=== PATIENT | male | born 1960 | race Caucasian/White ===

== ENCOUNTER 2016-09-18 15:38 | Inpatient (IN) | payer OTHER ==
[~2016-09-18] VITALS: Ht 167.6 cm; Wt 84.2 kg
--- NOTE | ~2016-09-18 | PR ---
[place], [place] PROGRESS NOTE NAME: RAMSES MERA UNIT #: [id number] ROOM: 503 DOCTOR: KEV JONES MD BIRTHDATE: [birth year] DOS: 09/20/2016 CARDIOLOGY PROGRESS NOTE SUBJECTIVE: The patient was seen on 09/20/2016. The patient was seen in the Cardiology Department just prior to his stress test today. He is a 56-year-old man who has noticed a 2-week history of bilateral ankle swelling along with abdominal distention and 50-pound weight gain in less than a year. We were asked to see him because of the swelling along with atypical chest pain. A CTA angiogram of the chest showed no evidence for pulmonary emboli or lung nodules. A contrast echocardiogram showed normal left ventricular size, wall motion and systolic function with normal left ventricular diastolic relaxation properties. No significant valve abnormalities were seen. Overnight, he has had increased cough and dyspnea. His white count has risen from 8700-24,000. PHYSICAL EXAMINATION: VITAL SIGNS: Today, his pulse is 86 and regular. Blood pressure is 98/68. He is afebrile. NECK: Supple, with no jugular distention. CHEST: Clear. He has no wheezes or rales. HEART: Has a regular rhythm with a soft S4 gallop. EXTREMITIES: Showed trace edema. IMPRESSION: 1. Atypical chest pain. 2. Reactive airways disease with exacerbation. 3. High white blood cell count, etiology to be determined. 4. No evidence for acute myocardial infarction or pulmonary embolism based on troponin levels and imaging. PLAN: We will proceed with a pharmacologic stress test in order to determine if he has coronary artery disease as a cause for his chest pains. Further recommendations will depend upon the results of the stress test. [place], [place] PROGRESS NOTE NAME: RAMSES MERA UNIT #: [id number] ROOM: 503 DOCTOR: KEV JONES MD BIRTHDATE: [birth year] KEV JONES MD CM:PNTRANS [id number] 1302 KEV JONES MD 09/20/16 1302 interface
[~2016-09-18 15:38] MED LIST: ADVAIR 250/501 EA INH; ALBUTEROL0.09 MG/Ac INH; ATORVASTATIN CA20 M1 PO; AZITHROMYCIN250 MG PO; B-1100 MG PO; BACTRIM DS 8001 TA1 PO; BACTROBAN OINT22 GM PO; CEPACOL2 M1 PO; CIPROFLOXACIN500 MG PO; HYDROCODONE BIT1 T11 PO; LIDEX 0.05% CRE15 GM T; LOTRISONE CREAM15 GM TP; MEDROL DOSEPAK4 MG PO; MUCINEX600 MG PO; MULTIPLE VITAMI1 TAB PO; NATURE'S BLEN2000 IU PO; NEURONTIN300 MG PO; SEPTRA DS 800 M1 TAB PO; VICODIN 500 MG-1 TAB PO
[2016-09-18 15:44] VITALS: BP 160/87
[2016-09-18 16:00] VITALS: BP 144/78
[2016-09-18 16:10] LABS: BASO % 0.5 % (0.0-1.0); EOS # 0.1 10*3/uL (0.0-0.4); HEMATOCRIT 42.8 % (42.0-52.0); HEMOGLOBIN 14.8 g/dl (14.0-18.0); LYMPH # 2.3 10*3/uL (1.3-4.4); MEAN CELL VOLUME 91.3 fl (80.0-94.0); MEAN CORPUSCULAR HGB 31.6 pg (27.0-31.0); MEAN CORPUSCULAR HGB CONC 34.6 g/dl (33.0-37.0); MEAN PLATELET VOLUME 9.6 fl (9.6-12.3); MONO # 0.7 10*3/uL (0.1-1.0); MONO % 7.6 % (3.0-9.0); NEUT # 5.6 10*3/uL (2.3-7.9); NEUT % 64.4 % (47.0-73.0); PLATELET COUNT AUTOMATED 238 10*3/uL (130-400); RED BLOOD COUNT 4.69 10*6/uL (4.50-5.90); WHITE BLOOD COUNT 8.7 10*3/uL (4.8-10.8)
[2016-09-18 16:27] LABS: ALBUMIN 3.7 gm/dl (3.1-4.5); ALKALINE PHOSPHATASE 78 U/L (45-117); BILIRUBIN, TOTAL 0.3 mg/dl (0.2-1.0); BUN 11 mg/dl (7-24); C-REACTIVE PROTEIN 0.54 MG/DL (0-0.3); CARBON DIOXIDE 27 mmol/L (21-32); CHLORIDE 102 mmol/L (98-107); EST GLOM FILT AFRICAN AMERICAN > 60 ml/min; GLUCOSE 157 mg/dL (65-99); POTASSIUM 3.8 mmol/L (3.5-5.1); SGOT/AST 36 IU/L (3-35); SGPT/ALT 57 U/L (12-78); SODIUM 135 mmol/L (136-145); TOTAL PROTEIN 7.5 gm/dL (6.4-8.2)
[2016-09-18 16:31] LABS: TROPONIN I < 0.015 ng/ml (<0.045)
[2016-09-18 16:31] LABS: PROTHROMBIN TIME 10.3 SECONDS (9.0-12.4)
[2016-09-18 17:00] VITALS: BP 148/82
[2016-09-18 17:45] VITALS: BP 154/88
[2016-09-18 18:17] VITALS: BP 143/92
[2016-09-18 20:00] VITALS: BP 141/84
[2016-09-19] VITALS: BP 132/71; BP 140/82
[2016-09-19 04:00] VITALS: BP 130/70
[2016-09-19 07:36] LABS: HEMATOCRIT 46.3 % (42.0-52.0); HEMOGLOBIN 15.4 g/dl (14.0-18.0); MEAN CELL VOLUME 91.5 fl (80.0-94.0); MEAN CORPUSCULAR HGB 30.4 pg (27.0-31.0); MEAN CORPUSCULAR HGB CONC 33.3 g/dl (33.0-37.0); MEAN PLATELET VOLUME 10.3 fl (9.6-12.3); PLATELET COUNT AUTOMATED 289 10*3/uL (130-400); RED BLOOD COUNT 5.06 10*6/uL (4.50-5.90); RED CELL DISTRI WIDTH 11.9 % (0-14.5); WHITE BLOOD COUNT 18.8 10*3/uL (4.8-10.8)
[2016-09-19 08:00] VITALS: BP 139/80
[2016-09-19 08:11] LABS: ALBUMIN 3.6 gm/dl (3.1-4.5); ALKALINE PHOSPHATASE 71 U/L (45-117); BILIRUBIN, TOTAL 0.3 mg/dl (0.2-1.0); BUN 15 mg/dl (7-24); CARBON DIOXIDE 24 mmol/L (21-32); CHLORIDE 104 mmol/L (98-107); CHOLESTEROL 179 mg/dL (<200); EST GLOM FILT AFRICAN AMERICAN > 60 ml/min; FREE T4 0.88 ng/dl (0.76-1.46); GLUCOSE 179 mg/dL (65-99); HDL CHOLESTEROL 45 mg/dl (40-60); LDL CHOLESTEROL 113 mg/dL (9-159); PHOSPHOROUS 2.2 mg/dL (2.5-4.9); POTASSIUM 4.1 mmol/L (3.5-5.1); SGOT/AST 24 IU/L (3-35); SGPT/ALT 53 U/L (12-78); SODIUM 135 mmol/L (136-145); TRIGLYCERIDES 106 mg/dl (<150); VLDL CHOLESTEROL 21 mg/dL (6-40)
[2016-09-19 08:15] LABS: HEMOGLOBIN A1c 6.2 % (4.8-5.6)
[2016-09-19 08:16] LABS: LYMPHOCYTE # 0.8 10*3/uL (1.3-4.4); MONOCYTE # 0.2 10*3/uL (0.1-1.0); NEUTROPHIL # 17.9 10*3/uL (2.3-7.9); NEUTROPHILS 95 % (47-73); PLATELET SUFFICIENCY NORMAL (NORMAL); THYROID STIM HORMONE (HS) 0.382 uIU/ml (0.358-4.75); TOTAL CELLS COUNTED 100 #CELLS
[2016-09-19 08:58] LABS: FOLIC ACID 14.02 ng/mL (>5.38); VITAMIN D, 25-HYDROXY 31.4 ng/mL (30-100)
[2016-09-19 12:00] VITALS: BP 139/71
[2016-09-19 16:00] VITALS: BP 139/70
[2016-09-19 20:00] VITALS: BP 138/86; BP 139/70
[2016-09-20] VITALS: BP 109/60; BP 138/86
[2016-09-20 04:00] VITALS: BP 110/62
[2016-09-20 07:06] LABS: BASO % 0.2 % (0.0-1.0); IG # 0.3 10*3/uL (0.0-0.1); LYMPH # 2.9 10*3/uL (1.3-4.4); MEAN CELL VOLUME 92.4 fl (80.0-94.0); MEAN CORPUSCULAR HGB 30.1 pg (27.0-31.0); MEAN CORPUSCULAR HGB CONC 32.6 g/dl (33.0-37.0); MEAN PLATELET VOLUME 10.3 fl (9.6-12.3); MONO # 1.1 10*3/uL (0.1-1.0); MONO % 4.4 % (3.0-9.0); NEUT # 19.8 10*3/uL (2.3-7.9); NEUT % 82.4 % (47.0-73.0); PLATELET COUNT AUTOMATED 305 10*3/uL (130-400); RED BLOOD COUNT 4.98 10*6/uL (4.50-5.90); RED CELL DISTRI WIDTH 12.4 % (0-14.5)
[2016-09-20 07:36] LABS: BUN 19 mg/dl (7-24); CARBON DIOXIDE 28 mmol/L (21-32); CHLORIDE 103 mmol/L (98-107); EST GLOM FILT AFRICAN AMERICAN > 60 ml/min; GLUCOSE 137 mg/dL (65-99); POTASSIUM 3.8 mmol/L (3.5-5.1); SODIUM 139 mmol/L (136-145)
[2016-09-20 08:00] VITALS: BP 98/68
[2016-09-20 12:00] VITALS: BP 98/68
[2016-09-20 16:00] VITALS: BP 130/82
[2016-09-20] MEDS ORDERED: PREDNISONE10 MG PO (17:36)
== END 2016-09-20 19:52 | disposition short-term general hospital (02) | DRG 202 ==
LOC: ED 15:38 → 5E 16:52 → EDHOLD 16:52 → 5E 17:20
PROVIDERS: Internal Medicine Hospice and Palliative Medicine; Student in an Organized Health Care Education/Training Program
PROC: 4A02XM4 Measurement of Cardiac Total Activity, External Approach (ICD-10-PCS; principal; 2016-09-20)
PROC: 3E073KZ Introduction of Other Diagnostic Substance into Coronary Artery, Percutaneous Approach (ICD-10-PCS; 2016-09-20)
DX: J45.901 Unspecified asthma with (acute) exacerbation (principal); R65.10 Systemic inflammatory response syndrome (SIRS) of non-infectious origin without acute organ dysfunction; E87.1 Hypo-osmolality and hyponatremia; G62.9 Polyneuropathy, unspecified; E78.00 Pure hypercholesterolemia, unspecified; R73.9 Hyperglycemia, unspecified; M54.42 Lumbago with sciatica, left side; M54.9 Dorsalgia, unspecified; M54.41 Lumbago with sciatica, right side; G89.29 Other chronic pain; E55.9 Vitamin D deficiency, unspecified; F17.210 Nicotine dependence, cigarettes, uncomplicated; Z82.49 Family history of ischemic heart disease and other diseases of the circulatory system; Z84.89 Family history of other specified conditions; Z71.6 Tobacco abuse counseling; Z80.1 Family history of malignant neoplasm of trachea, bronchus and lung; Z88.6 Allergy status to analgesic agent; Z79.899 Other long term (current) drug therapy; R07.89 Other chest pain

== ENCOUNTER 2016-10-17 13:51 | Emergency (ER) | payer OTHER ==
[~2016-10-17] VITALS: Ht 167.6 cm; Wt 81.6 kg
[~2016-10-17 13:51] MED LIST changes: +PREDNISONE10 MG PO
[2016-10-17 14:35] LABS: BASO % 0.3 % (0.0-1.0); EOS # 0.1 10*3/uL (0.0-0.4); EOS % 1.7 % (1.0-4.0); HEMATOCRIT 42.9 % (42.0-52.0); HEMOGLOBIN 14.3 g/dl (14.0-18.0); LYMPH # 1.6 10*3/uL (1.3-4.4); LYMPH % 23.4 % (27.0-41.0); MEAN CELL VOLUME 90.3 fl (80.0-94.0); MEAN CORPUSCULAR HGB 30.1 pg (27.0-31.0); MEAN CORPUSCULAR HGB CONC 33.3 g/dl (33.0-37.0); MEAN PLATELET VOLUME 9.7 fl (9.6-12.3); MONO # 0.5 10*3/uL (0.1-1.0); MONO % 6.7 % (3.0-9.0); NEUT # 4.7 10*3/uL (2.3-7.9); NEUT % 67.3 % (47.0-73.0); PLATELET COUNT AUTOMATED 236 10*3/uL (130-400); RED BLOOD COUNT 4.75 10*6/uL (4.50-5.90); RED CELL DISTRI WIDTH 11.9 % (0-14.5)
[2016-10-17 14:57] LABS: ALBUMIN 3.4 gm/dl (3.1-4.5); BUN 9 mg/dl (7-24); CHLORIDE 99 mmol/L (98-107); CREATININE 1.19 mg/dL (0.70-1.30); LDH 229 U/L (87-241); LIPASE 103 U/L (73-393); MAGNESIUM 2.3 mg/dL (1.5-2.1); POTASSIUM 3.8 mmol/L (3.5-5.1); SGOT/AST 30 IU/L (3-35); SGPT/ALT 54 U/L (12-78); SODIUM 135 mmol/L (136-145)
[2016-10-17 14:58] LABS: ALKALINE PHOSPHATASE 75 U/L (45-117); CPK 63 U/L (39-308); TOTAL PROTEIN 7.3 gm/dL (6.4-8.2)
[2016-10-17 14:59] LABS: CKMB < 0.5 ng/ml (0.5-3.6); TROPONIN I < 0.015 ng/ml (<0.045)
[2016-10-17] MEDS ORDERED: NEURONTIN300 MG PO (17:56)
== END 2016-10-17 18:31 | disposition home or self-care (01) ==
LOC: ED 13:51
PROVIDERS: Physician Assistant
DX: R14.0 Abdominal distension (gaseous) (principal); M79.89 Other specified soft tissue disorders; R60.0 Localized edema; F17.200 Nicotine dependence, unspecified, uncomplicated; Z98.890 Other specified postprocedural states; Z88.5 Allergy status to narcotic agent

== ENCOUNTER 2016-11-07 12:05 | Emergency (ER) | payer OTHER ==
[~2016-11-07] VITALS: Ht 167.6 cm; Wt 81.6 kg
[2016-11-07 12:28] LABS: BASO % 0.5 % (0.0-1.0); EOS # 0.1 10*3/uL (0.0-0.4); EOS % 1.1 % (1.0-4.0); HEMATOCRIT 44.8 % (42.0-52.0); HEMOGLOBIN 15.2 g/dl (14.0-18.0); LYMPH # 2.2 10*3/uL (1.3-4.4); LYMPH % 27.3 % (27.0-41.0); MEAN CELL VOLUME 89.1 fl (80.0-94.0); MEAN CORPUSCULAR HGB 30.2 pg (27.0-31.0); MEAN CORPUSCULAR HGB CONC 33.9 g/dl (33.0-37.0); MEAN PLATELET VOLUME 9.5 fl (9.6-12.3); MONO # 0.6 10*3/uL (0.1-1.0); MONO % 7.2 % (3.0-9.0); NEUT # 5.1 10*3/uL (2.3-7.9); NEUT % 63.3 % (47.0-73.0); PLATELET COUNT AUTOMATED 253 10*3/uL (130-400); RED BLOOD COUNT 5.03 10*6/uL (4.50-5.90); RED CELL DISTRI WIDTH 11.9 % (0-14.5); WHITE BLOOD COUNT 8.1 10*3/uL (4.8-10.8)
[2016-11-07 12:42] LABS: ACT PARTIAL THROMBO TIME 26.4 SECONDS (20.8-31.5)
[2016-11-07 12:43] LABS: ALBUMIN 3.8 gm/dl (3.1-4.5); ALKALINE PHOSPHATASE 81 U/L (45-117); BUN 9 mg/dl (7-24); CHLORIDE 101 mmol/L (98-107); CREATININE 0.97 mg/dL (0.70-1.30); ETHYL ALCOHOL < 3.0 mg/dl (<3); LIPASE 174 U/L (73-393); SGOT/AST 44 IU/L (3-35); SGPT/ALT 75 U/L (12-78); SODIUM 136 mmol/L (136-145); TOTAL PROTEIN 7.8 gm/dL (6.4-8.2)
[2016-11-07 13:15] LABS: BILIRUBIN NEGATIVE (NEGATIVE); BLOOD NEGATIVE (NEGATIVE); CLARITY CLEAR (CLEAR); COLOR YELLOW (YELLOW); GLUCOSE NEGATIVE (NEGATIVE); KETONE NEGATIVE (NEGATIVE); LEUKO ESTERASE NEGATIVE (NEGATIVE); NITRITE NEGATIVE (NEGATIVE); SPECIFIC GRAVITY <= 1.005 (1.005-1.030); UROBILINOGEN 0.2 E.U./dl (0.2-1.0)
[2016-11-07 13:25] LABS: URINE AMPHETAMINES < 1000 (1000ng/ml); URINE BARBITURATES < 200 (200ng/ml); URINE BENZODIAZEPINES < 200 (200ng/ml); URINE CANNABINOIDS (THC) < 50 (50ng/ml); URINE COCAINE < 300 (300ng/ml); URINE METHADONE < 300 (300ng/ml); URINE OPIATES < 300 (300ng/ml)
[2016-11-07 13:32] LABS: URINE PHENCYCLIDINE < 25 (25ng/ml)
[2016-11-07 13:36] LABS: EPITHELIAL CELLS 0-2
[2016-11-07] MEDS ORDERED: MIRALAX POWDER17 G1 PO (14:49)
== END 2016-11-07 15:42 | disposition home or self-care (01) ==
LOC: ED 12:05
PROVIDERS: Nurse Practitioner Family
DX: K59.00 Constipation, unspecified (principal); R03.0 Elevated blood-pressure reading, without diagnosis of hypertension; F17.200 Nicotine dependence, unspecified, uncomplicated; Z98.890 Other specified postprocedural states; Z79.899 Other long term (current) drug therapy; Z88.5 Allergy status to narcotic agent

== ENCOUNTER → 2017-01-15 | Day surgery (SDC) | payer OTHER ==
[~2017-01-15] VITALS: Ht 170.1 cm; Wt 86.2 kg
[~2017-01-15] MED LIST changes: +GAVISCON ES TA1 EACH PO; +MIRALAX POWDER17 G1 PO; +OMEPRAZOLE MAGN20 MG PO
--- NOTE | ~2017-01-15 | O ---
[place], [place] OPERATIVE NOTE NAME: RAMSES MERA UNIT #: [id number] ROOM: DOCTOR: KLEBER BELCHER MD BIRTHDATE: [birth year] DOS: HISTORY OF PRESENT ILLNESS: A 56-year-old patient who has presented with chief complaint of epigastric distress, dyspepsia, atypical chest pain. SOCIAL HISTORY: The patient is an aggressive smoker and alcohol consumer. PAST MEDICAL HISTORY: Hypercholesterolemia, vitamin D deficiency. FAMILY HISTORY: Noncontributory. ALLERGIES: MORPHINE. PAST SURGICAL HISTORY: Hand repair. He is consuming large volume of Tums for dyspepsia. PROCEDURE: Today's procedure part of investigation is panendoscopy plus biopsy. PREMEDICATION: Versed and Diprivan. SCOPE: Olympus forward-viewing gastroscope Q10 video. OPERATIVE REPORT: After putting the patient in left lateral position and application of lubricant to the scope, the scope was introduced. Thereafter, under direct visualization, advanced through the length of esophagus without difficulty. Small hiatal hernia was noticed. Gastric pouch was entered. Gastritis seen. Antral biopsy obtained. Duodenal bulb, second and third part within normal limits. The patient extubated after GI reflection of the scope, which reveals cardia to be benign. IMPRESSION: Hiatal hernia, gastritis. PLAN AND DISCUSSION: Needs to be on PPI therapy, omeprazole 20 mg 1 every day would be started. The patient would be counseled to stop alcohol and reducing his smoking, possible to stop, antireflux measures with elevation of the head of the bed 6 inches all the time. Gaviscon as antacid of choice and follow up routinely with you in office, p.r.n. visit with us in GI Clinic. This patient intends to see Dr. Walters in future. Thank you very much indeed. [place], [place] OPERATIVE NOTE NAME: RAMSES MERA UNIT #: [id number] ROOM: DOCTOR: KLEBER BELCHER MD BIRTHDATE: [birth year] KLEBER BELCHER MD CM:OPRECORD:OPERATIVE NOTE 1018 [id number] KLEBER BELCHER MD 01/15/17 1221 interface
[2017-01-15 09:17] VITALS: BP 136/72
[2017-01-15 10:12] VITALS: BP 115/73
[2017-01-15 10:30] VITALS: BP 117/81
[2017-01-15 10:41] VITALS: BP 134/85
== END ==
LOC: SDC 01-13 11:00
DX: K29.50 Unspecified chronic gastritis without bleeding (principal); K44.9 Diaphragmatic hernia without obstruction or gangrene; F17.210 Nicotine dependence, cigarettes, uncomplicated; J45.909 Unspecified asthma, uncomplicated; K21.9 Gastro-esophageal reflux disease without esophagitis; Z79.899 Other long term (current) drug therapy; E66.9 Obesity, unspecified; Z88.8 Allergy status to other drugs, medicaments and biological substances; E78.00 Pure hypercholesterolemia, unspecified

== ENCOUNTER 2017-05-29 15:03 | Inpatient (IN) | payer OTHER ==
[~2017-05-29] VITALS: Ht 167.6 cm; Wt 83.7 kg
--- NOTE | ~2017-05-29 | O ---
[place], [place] OPERATIVE NOTE NAME: RAMSES MERA UNIT #: [id number] ROOM: 416 DOCTOR: KLEBER BELCHER MD BIRTHDATE: [birth year] DOS: 05/30/2017 GASTROENDOSCOPIC REPORT The patient has presented with atypical chest pain, subxiphoid, substernal, also he mentions radiation to the left arm. The patient has had a myocardial perfusion study done already and the study shows no acute myocardial distress. Ejection fraction 70% and details per report. At the time of admission, his H and H was 14 and 41 and remained the same. His lipase was normal. BNP was normal. Chest x-ray, no acute pathology reported. CBC was reassessed. Comprehensive metabolic panel, GFR greater than 60. Liver function test slight elevation of AST, otherwise normal. PAST MEDICAL HISTORY: Otherwise, chronic lower back pain, hypercholesterolemia and nicotine dependency. PAST SURGICAL HISTORY: Minor operation. SOCIAL HISTORY: Smoker of a pack cigarette, 2 beers daily. He says in his confession finally and he denies hard liquors. FAMILY HISTORY: Noncontributory. ALLERGIES: MORPHINE. MEDICATIONS: Reviewed. Today's procedure part of investigation is panendoscopy plus biopsy. PREMEDICATION: Versed and Diprivan. SCOPE: Olympus forward-viewing gastroscope Q10 video. REPORT: After putting the patient in left lateral position and application of lubricant to this scope, the scope was introduced. Thereafter, under direct visualization, advanced through the length of esophagus without difficulty. Esophagus, cervical, thoracic distally within normal limits. No ulceration was noticed. No evidence of acute reflux identified. Gastric pouch was entered. Moderate gastritis along with duodenitis seen. Antral biopsy obtained. GI reflexion of the scope reveals cardia to be benign. Air was suctioned out. The patient was extubated, tolerated procedure well. IMPRESSION: Gastritis and duodenitis. PLAN: Protonix 40 mg daily. Gaviscon 1 tablet before meals and advised to abstain from alcohol and smoking. However, I seriously doubt he is going to be compliant. [place], [place] OPERATIVE NOTE NAME: RAMSES MERA UNIT #: [id number] ROOM: 416 DOCTOR: KLEBER BELCHER MD BIRTHDATE: [birth year] KLEBER BELCHER MD CM:KYRA:OPERATIVE NOTE 1515 1547 KLEBER BELCHER MD 05/30/17 1546 interface
--- NOTE | ~2017-05-29 | CON ---
[place], [place] REPORT OF CONSULTATION NAME: [facility]ES [facility]A [facility] [id number] UNIT #: [id number] ROOM: 416 DOCTOR: KEV JONES MD BIRTHDATE: [birth year] DOS: 05/30/2017 REASON FOR CONSULTATION: Chest pain. HISTORY OF PRESENT ILLNESS: The patient is a 57-year-old man who has had a long history of various chest pains. I evaluated him for chest discomfort when he presented to the hospital in September 2016. He ruled out for myocardial infarction. A subsequent stress test and echocardiogram showed no evidence for structural or ischemic heart disease. He states that since then he has continued to have intermittent chest pain, but in the last week or so his pains have become much worse. They come at odd times and are not specifically related to exertion. He has had severe pains wake him from sleep. The pains do radiate into his left arm and are associated with diaphoresis and dyspnea. He became concerned that his pains have gotten a lot worse and therefore came to the emergency room. In the emergency room, he had no acute EKG changes. There was a minimal elevation in his troponin; however, and we were asked to evaluate him further. PAST MEDICAL HISTORY: Includes 1. Long-term recurrent chest pain. 2. Hyperglycemia. 3. Reactive airways disease. 4. History of tachycardia. 5. Chronic tobacco abuse. 6. History of daily alcohol consumption. 7. History of chronic back pain. 8. Chronic obstructive pulmonary disease. MEDICATIONS PRIOR TO ADMISSION: Aspirin 325 mg daily, vitamin D 2000 units daily, furosemide 20 mg b.i.d., losartan with hydrochlorothiazide 50/12.5 one daily and potassium chloride 20 mEq daily. ALLERGIES: The patient lists allergies to MORPHINE. REVIEW OF SYSTEMS: The patient denies diplopia or loss of vision. He denies focal weakness, but he is generally weak. He denies fevers, chills or sweats. He does note that his weight is gradually increasing. He does have chronic back pain. He has dyspnea with minor exertion. He has a chronic cough. He denies nausea or vomiting unless he is having chest discomfort. He denies hemoptysis or hematemesis. He denies blood in his stools or urine. He denies any change in his bowel or bladder habits. He denies any skin rashes. He does admit to some peripheral edema. The remainder of the review of systems is negative except as noted above. SOCIAL HISTORY: The patient does smoke and drink alcohol (beer) daily. He denies illicit drug use. FAMILY HISTORY: His father at age 59 from small cell lung cancer. He did have a history of heart attack at age 51. He had a sister who had a heart attack at age 53. Another brother at age 46 due to a myocardial [place], [place] REPORT OF CONSULTATION NAME: RAMSES MERA UNIT #: [id number] ROOM: [facility] DOCTOR: KEV JONES MD BIRTHDATE: [birth year] infarction. PHYSICAL EXAMINATION: GENERAL: The patient is a well-nourished white male, looks older than his stated age. VITAL SIGNS: Pulse is 84 and regular, blood pressure is 124/85. He is afebrile. HEENT: Normocephalic, atraumatic. Extraocular muscles are intact. Sclerae are clear. Pupils are equal, round and react to light. The oral mucosa is moist. Tongue is midline. NECK: Supple. He has no jugular distention. Carotids are full. He has no bruits. He has no neck or supraclavicular masses and no thyromegaly. LUNGS: Respirations are unlabored. His chest is clear with decreased breath sounds at the bases, but no wheezes or rales. He has no presacral edema or chest wall tenderness. CARDIOVASCULAR: His heart has a regular rhythm. He has a fourth heart sound, but no third heart sound. The PMI is not displaced. He has no precordial heave, lift or thrill and no obvious murmurs. ABDOMEN: Soft and normally active. He does have some mild right upper quadrant tenderness, but this does not reproduce his chest pain. Palpation of his chest and abdomen do not reproduce his chest pain in anyway. EXTREMITIES: Showed no edema. Peripheral pulses are easily palpated in the feet. LABORATORY DATA: The patient's electrocardiogram shows sinus rhythm with nonspecific T-wave abnormalities in the inferior and lateral leads. No acute ST changes were seen. IMPRESSIONS: 1. Atypical chest pain. The patient's evaluations in the past have included a stress test and echocardiogram within the last year. They were both unremarkable. It is felt to be most likely that his symptoms are due to gastritis, hiatal hernia, etc. 2. Multiple risk factors including cigarette abuse, hyperlipidemia, family history, etc. PLAN: We will proceed with a pharmacologic stress test. Further recommendations will depend upon the results of the stress test. I thank the hospitalist physicians for asking our advice regarding the patient's care. [place], [place] REPORT OF CONSULTATION NAME: RAMSES MERA UNIT #: [id number] ROOM: 416 DOCTOR: KEV JONES MD BIRTHDATE: [birth year] KEV JONES MD CM:CONSTR:REPORT OF CONSULTATION 1016 05/30/17 1038 interface
[2017-05-29 15:07] VITALS: BP 146/93
[2017-05-29 15:32] LABS: BASO % 0.4 % (0.0-1.0); EOS # 0.1 10*3/uL (0.0-0.4); EOS % 0.9 % (1.0-4.0); HEMATOCRIT 41.9 % (42.0-52.0); HEMOGLOBIN 14.3 g/dl (14.0-18.0); LYMPH % 25.1 % (27.0-41.0); MEAN CELL VOLUME 86.6 fl (80.0-94.0); MEAN CORPUSCULAR HGB 29.5 pg (27.0-31.0); MEAN CORPUSCULAR HGB CONC 34.1 g/dl (33.0-37.0); MEAN PLATELET VOLUME 9.7 fl (9.6-12.3); MONO # 0.5 10*3/uL (0.1-1.0); MONO % 6.5 % (3.0-9.0); NEUT # 5.2 10*3/uL (2.3-7.9); NEUT % 66.5 % (47.0-73.0); PLATELET COUNT AUTOMATED 268 10*3/uL (130-400); RED BLOOD COUNT 4.84 10*6/uL (4.50-5.90); RED CELL DISTRI WIDTH 12.1 % (0-14.5); WHITE BLOOD COUNT 7.9 10*3/uL (4.8-10.8)
[2017-05-29 15:41] LABS: ACT PARTIAL THROMBO TIME 24.4 SECONDS (20.8-31.5); INTERNATIONAL NORM RATIO 0.9 (2.0-3.5)
[2017-05-29 15:51] LABS: ALBUMIN 3.7 gm/dl (3.1-4.5); ALKALINE PHOSPHATASE 71 U/L (45-117); BUN 12 mg/dl (7-24); CHLORIDE 92 mmol/L (98-107); CREATININE 1.07 mg/dL (0.70-1.30); POTASSIUM 3.8 mmol/L (3.5-5.1); SGOT/AST 51 IU/L (3-35); SGPT/ALT 77 U/L (12-78); SODIUM 131 mmol/L (136-145); TOTAL PROTEIN 7.9 gm/dL (6.4-8.2)
[2017-05-29 15:52] LABS: TROPONIN I 0.027 ng/ml (<0.045)
[2017-05-29 15:53] VITALS: BP 139/72
[2017-05-29] MEDS ORDERED: FUROSEMIDE20 M1 PO (16:00)
[2017-05-29] MEDS ORDERED: LOSARTAN-HCTZ1 EACH PO (16:01)
[2017-05-29] MEDS ORDERED: ASPIRIN325 M2 PO (16:02)
[2017-05-29 16:46] VITALS: BP 107/61
[2017-05-29 17:06] VITALS: BP 104/75
[2017-05-29] MEDS ORDERED: POTASSIUM CHLO20 MEQ PO (17:25)
[2017-05-29 20:00] VITALS: BP 126/86
[2017-05-30] VITALS (8 sets, daily range): BP systolic 90–136; BP diastolic 35–85
[2017-05-30 06:06] LABS: BASO % 0.4 % (0.0-1.0); EOS # 0.2 10*3/uL (0.0-0.4); HEMATOCRIT 41.4 % (42.0-52.0); HEMOGLOBIN 13.8 g/dl (14.0-18.0); LYMPH # 2.6 10*3/uL (1.3-4.4); LYMPH % 30.7 % (27.0-41.0); MEAN CELL VOLUME 88.7 fl (80.0-94.0); MEAN CORPUSCULAR HGB 29.6 pg (27.0-31.0); MEAN CORPUSCULAR HGB CONC 33.3 g/dl (33.0-37.0); MEAN PLATELET VOLUME 9.7 fl (9.6-12.3); MONO # 0.8 10*3/uL (0.1-1.0); MONO % 8.9 % (3.0-9.0); NEUT # 4.8 10*3/uL (2.3-7.9); NEUT % 57.1 % (47.0-73.0); PLATELET COUNT AUTOMATED 271 10*3/uL (130-400); RED BLOOD COUNT 4.67 10*6/uL (4.50-5.90); RED CELL DISTRI WIDTH 12.4 % (0-14.5); WHITE BLOOD COUNT 8.5 10*3/uL (4.8-10.8)
[2017-05-30 06:11] LABS: ALBUMIN 3.4 gm/dl (3.1-4.5); BUN 14 mg/dl (7-24); CHLORIDE 98 mmol/L (98-107); POTASSIUM 4.1 mmol/L (3.5-5.1); SODIUM 134 mmol/L (136-145)
[2017-05-30 06:14] LABS: ALKALINE PHOSPHATASE 59 U/L (45-117); CREATININE 0.99 mg/dL (0.70-1.30); PHOSPHOROUS 2.7 mg/dL (2.5-4.9); SGOT/AST 38 IU/L (3-35); SGPT/ALT 66 U/L (12-78)
[2017-05-30] MEDS ORDERED: NITROSTAT0.3 M1 SL (17:24)
[2017-05-30] MEDS ORDERED: METFORMIN500 MG PO (17:24)
[2017-05-30] MEDS ORDERED: COREG6.25 MG PO (17:26)
[2017-05-30] MEDS ORDERED: LIPITOR80 MG PO (17:28)
== END 2017-05-30 17:43 | disposition home or self-care (01) | DRG 205 ==
LOC: ED 15:03 → EDHOLD 16:18 → 4E 16:18
PROVIDERS: Emergency Medicine; Student in an Organized Health Care Education/Training Program
PROC: 0DB78ZX Excision of Stomach, Pylorus, Via Natural or Artificial Opening Endoscopic, Diagnostic (ICD-10-PCS; principal; 2017-05-30)
PROC: 4A02XM4 Measurement of Cardiac Total Activity, External Approach (ICD-10-PCS; 2017-05-30)
PROC: 3E073KZ Introduction of Other Diagnostic Substance into Coronary Artery, Percutaneous Approach (ICD-10-PCS; 2017-05-30)
DX: M94.0 Chondrocostal junction syndrome [Tietze] (principal); I21.9 Acute myocardial infarction, unspecified; E11.42 Type 2 diabetes mellitus with diabetic polyneuropathy; R13.10 Dysphagia, unspecified; E11.65 Type 2 diabetes mellitus with hyperglycemia; E87.1 Hypo-osmolality and hyponatremia; K29.70 Gastritis, unspecified, without bleeding; R07.89 Other chest pain; M54.5 Low back pain; E87.8 Other disorders of electrolyte and fluid balance, not elsewhere classified; D72.810 Lymphocytopenia; R74.0 Nonspecific elevation of levels of transaminase and lactic acid dehydrogenase [LDH]; E55.9 Vitamin D deficiency, unspecified; F17.200 Nicotine dependence, unspecified, uncomplicated; D64.9 Anemia, unspecified; E78.5 Hyperlipidemia, unspecified; K29.80 Duodenitis without bleeding; K44.9 Diaphragmatic hernia without obstruction or gangrene; E78.00 Pure hypercholesterolemia, unspecified; G89.29 Other chronic pain; J44.9 Chronic obstructive pulmonary disease, unspecified; I10 Essential (primary) hypertension; Z82.49 Family history of ischemic heart disease and other diseases of the circulatory system; Z80.1 Family history of malignant neoplasm of trachea, bronchus and lung; Z88.8 Allergy status to other drugs, medicaments and biological substances; Z79.82 Long term (current) use of aspirin; Z79.899 Other long term (current) drug therapy; Z71.6 Tobacco abuse counseling; Z72.89 Other problems related to lifestyle

== ENCOUNTER 2017-06-07 12:32 | Inpatient (IN) | payer OTHER ==
[~2017-06-07] VITALS: Ht 167.6 cm; Wt 80.3 kg
[~2017-06-07 12:32] MED LIST changes: +ASPIRIN325 M2 PO; +COREG6.25 MG PO; +FUROSEMIDE20 M1 PO; +LIPITOR80 MG PO; +LOSARTAN-HCTZ1 EACH PO; +METFORMIN500 MG PO; +NITROSTAT0.3 M1 SL; +POTASSIUM CHLO20 MEQ PO
[2017-06-07 12:49] VITALS: BP 120/68
[2017-06-07 12:59] LABS: BASO % 0.3 % (0.0-1.0); EOS # 0.1 10*3/uL (0.0-0.4); EOS % 1.1 % (1.0-4.0); HEMATOCRIT 42.3 % (42.0-52.0); HEMOGLOBIN 14.7 g/dl (14.0-18.0); LYMPH # 1.9 10*3/uL (1.3-4.4); MEAN CELL VOLUME 86.9 fl (80.0-94.0); MEAN CORPUSCULAR HGB 30.2 pg (27.0-31.0); MEAN CORPUSCULAR HGB CONC 34.8 g/dl (33.0-37.0); MEAN PLATELET VOLUME 9.3 fl (9.6-12.3); MONO # 0.6 10*3/uL (0.1-1.0); MONO % 5.9 % (3.0-9.0); NEUT # 7.7 10*3/uL (2.3-7.9); NEUT % 74.2 % (47.0-73.0); PLATELET COUNT AUTOMATED 280 10*3/uL (130-400); RED BLOOD COUNT 4.87 10*6/uL (4.50-5.90); RED CELL DISTRI WIDTH 11.9 % (0-14.5); WHITE BLOOD COUNT 10.4 10*3/uL (4.8-10.8)
[2017-06-07 13:10] LABS: ACT PARTIAL THROMBO TIME 23.9 SECONDS (20.8-31.5)
[2017-06-07 13:14] LABS: ALBUMIN 3.9 gm/dl (3.1-4.5); ALKALINE PHOSPHATASE 74 U/L (45-117); BUN 13 mg/dl (7-24); CHLORIDE 97 mmol/L (98-107); POTASSIUM 3.9 mmol/L (3.5-5.1); SGOT/AST 33 IU/L (3-35); SGPT/ALT 62 U/L (12-78); SODIUM 135 mmol/L (136-145); TOTAL PROTEIN 7.8 gm/dL (6.4-8.2)
[2017-06-07 13:17] LABS: TROPONIN I < 0.015 ng/ml (<0.045)
[2017-06-07 14:16] VITALS: BP 108/72
[2017-06-07 15:09] VITALS: BP 108/74
[2017-06-07 15:42] VITALS: BP 106/72
[2017-06-07 20:00] VITALS: BP 104/51
[2017-06-08] VITALS: BP 105/63
[2017-06-08 06:33] LABS: BASO % 0.4 % (0.0-1.0); EOS # 0.1 10*3/uL (0.0-0.4); EOS % 1.3 % (1.0-4.0); HEMATOCRIT 40.6 % (42.0-52.0); HEMOGLOBIN 13.5 g/dl (14.0-18.0); LYMPH # 2.4 10*3/uL (1.3-4.4); LYMPH % 22.6 % (27.0-41.0); MEAN CELL VOLUME 89.4 fl (80.0-94.0); MEAN CORPUSCULAR HGB 29.7 pg (27.0-31.0); MEAN CORPUSCULAR HGB CONC 33.3 g/dl (33.0-37.0); MEAN PLATELET VOLUME 10.2 fl (9.6-12.3); MONO # 0.8 10*3/uL (0.1-1.0); MONO % 7.2 % (3.0-9.0); NEUT % 67.7 % (47.0-73.0); PLATELET COUNT AUTOMATED 240 10*3/uL (130-400); RED BLOOD COUNT 4.54 10*6/uL (4.50-5.90); RED CELL DISTRI WIDTH 11.9 % (0-14.5); WHITE BLOOD COUNT 10.4 10*3/uL (4.8-10.8)
[2017-06-08 07:00] LABS: ALBUMIN 3.5 gm/dl (3.1-4.5); ALKALINE PHOSPHATASE 70 U/L (45-117); BUN 14 mg/dl (7-24); CHLORIDE 98 mmol/L (98-107); CHOLESTEROL 88 mg/dL (<200); CREATININE 1.07 mg/dL (0.70-1.30); FREE T4 1.13 ng/dl (0.76-1.46); HDL CHOLESTEROL 30 mg/dl (40-60); LDL CHOLESTEROL 34 mg/dL (9-159); PHOSPHOROUS 3.7 mg/dL (2.5-4.9); POTASSIUM 3.7 mmol/L (3.5-5.1); SGOT/AST 33 IU/L (3-35); SGPT/ALT 55 U/L (12-78); SODIUM 138 mmol/L (136-145); TOTAL PROTEIN 7.2 gm/dL (6.4-8.2); TRIGLYCERIDES 118 mg/dl (<150); VLDL CHOLESTEROL 24 mg/dL (6-40)
[2017-06-08 08:00] VITALS: BP 111/66
[2017-06-08 09:45] LABS: VITAMIN D, 25-HYDROXY 44.6 ng/mL (30-100)
[2017-06-08 12:00] VITALS: BP 125/89
[2017-06-08 16:00] VITALS: BP 125/73
[2017-06-08 20:00] VITALS: BP 131/86
[2017-06-09] VITALS: BP 132/82
== END 2017-06-09 07:15 | disposition other institution (70) | DRG 303 ==
LOC: ED 12:32 → 5E 14:43 → EDHOLD 14:43 → 5E 15:07
PROVIDERS: Family Medicine; Nurse Practitioner Family
DX: I25.10 Atherosclerotic heart disease of native coronary artery without angina pectoris (principal); E11.42 Type 2 diabetes mellitus with diabetic polyneuropathy; E11.51 Type 2 diabetes mellitus with diabetic peripheral angiopathy without gangrene; E87.1 Hypo-osmolality and hyponatremia; E87.8 Other disorders of electrolyte and fluid balance, not elsewhere classified; K29.00 Acute gastritis without bleeding; E83.41 Hypermagnesemia; G89.29 Other chronic pain; M54.9 Dorsalgia, unspecified; E78.5 Hyperlipidemia, unspecified; J44.9 Chronic obstructive pulmonary disease, unspecified; K21.9 Gastro-esophageal reflux disease without esophagitis; D72.810 Lymphocytopenia; F17.200 Nicotine dependence, unspecified, uncomplicated; E78.00 Pure hypercholesterolemia, unspecified; I10 Essential (primary) hypertension; E11.65 Type 2 diabetes mellitus with hyperglycemia; Z82.49 Family history of ischemic heart disease and other diseases of the circulatory system; Z83.3 Family history of diabetes mellitus; Z80.1 Family history of malignant neoplasm of trachea, bronchus and lung; Z79.82 Long term (current) use of aspirin; Z88.5 Allergy status to narcotic agent; Z79.84 Long term (current) use of oral hypoglycemic drugs; Z79.4 Long term (current) use of insulin; Z79.899 Other long term (current) drug therapy; Z71.6 Tobacco abuse counseling; Z72.89 Other problems related to lifestyle

== ENCOUNTER → 2017-07-23 | Outpatient (CLI) | payer OTHER | END | disposition home or self-care (01) | LOC: RAD 07-17 11:00 | DX: K21.9 Gastro-esophageal reflux disease without esophagitis (principal); E11.9 Type 2 diabetes mellitus without complications ==

== ENCOUNTER → 2019-12-28 | Outpatient (CLI) | payer OTHER | END | disposition home or self-care (01) | LOC: CARD 10:19 | PROVIDERS: ATTEND Physician Assistant | DX: I49.3 Ventricular premature depolarization (principal); I49.1 Atrial premature depolarization; I10 Essential (primary) hypertension; E78.00 Pure hypercholesterolemia, unspecified; I65.23 Occlusion and stenosis of bilateral carotid arteries; I20.1 Angina pectoris with documented spasm; F17.200 Nicotine dependence, unspecified, uncomplicated ==

== ENCOUNTER → 2020-12-25 | Outpatient (CLI) | payer OTHER | END | disposition home or self-care (01) | LOC: NM 08:00 | PROVIDERS: ATTEND Surgery | DX: K21.9 Gastro-esophageal reflux disease without esophagitis (principal) ==

== ENCOUNTER → 2021-02-26 | Day surgery (SDC) | payer OTHER ==
[~2021-02-26] VITALS: Ht 167.6 cm; Wt 77.1 kg
[~2021-02-26] MED LIST changes: +CARAFATE1 G1 PO; +PROTONIX40 MG PO
[2021-02-26 07:47] VITALS: BP 128/81
[2021-02-26 08:30] VITALS: BP 117/73
[2021-02-26 08:45] VITALS: BP 109/76
[2021-02-26 09:00] VITALS: BP 122/64
== END | disposition home or self-care (01) ==
LOC: SDC 02-15 12:45
PROVIDERS: ATTEND Surgery
DX: K21.9 Gastro-esophageal reflux disease without esophagitis (principal); K29.80 Duodenitis without bleeding; K29.50 Unspecified chronic gastritis without bleeding; I25.10 Atherosclerotic heart disease of native coronary artery without angina pectoris; I10 Essential (primary) hypertension; J44.9 Chronic obstructive pulmonary disease, unspecified; F17.210 Nicotine dependence, cigarettes, uncomplicated; E78.00 Pure hypercholesterolemia, unspecified; Z88.5 Allergy status to narcotic agent; Z20.822 Contact with and (suspected) exposure to COVID-19; Z79.899 Other long term (current) drug therapy

== ENCOUNTER → 2024-05-13 | Outpatient (CLI) | payer OTHER | END | disposition home or self-care (01) | LOC: US 08:00 | PROVIDERS: ATTEND Urology | DX: K76.0 Fatty (change of) liver, not elsewhere classified (principal); N28.89 Other specified disorders of kidney and ureter; N43.3 Hydrocele, unspecified ==

== ENCOUNTER → 2024-09-17 | Outpatient (CLI) | payer OTHER | LOC: US 08-19 08:30 | PROVIDERS: ATTEND Physician Assistant | DX: K76.0 Fatty (change of) liver, not elsewhere classified (principal); K86.89 Other specified diseases of pancreas; E11.8 Type 2 diabetes mellitus with unspecified complications ==

== ENCOUNTER → 2024-10-25 | Outpatient (CLI) | payer OTHER | END | disposition home or self-care (01) | LOC: US 10-13 13:00 | PROVIDERS: ATTEND Urology | DX: N43.2 Other hydrocele (principal); N50.811 Right testicular pain; N45.1 Epididymitis ==

== ENCOUNTER 2024-11-28 17:19 | Emergency (ER) | payer OTHER ==
[~2024-11-28] VITALS: Ht 167.6 cm; Wt 72.6 kg
[2024-11-28] MEDS ORDERED: SODIUM CHLORIDE 0.9% 1,000 ML IV ONE (18:05)
[2024-11-28 18:28] LABS: BASO # 0.1 10*3/uL (0.0-0.1); BASO % 0.6 % (0.0-1.0); EOS # 0.3 10*3/uL (0.0-0.4); EOS % 4.0 % (1.0-4.0); MEAN CELL VOLUME 91.1 fl (80.0-94.0); MEAN CORPUSCULAR HGB 29.7 pg (27.0-31.0); MEAN PLATELET VOLUME 9.6 fl (9.6-12.3); MONO # 0.5 10*3/uL (0.1-1.0); MONO % 6.0 % (3.0-9.0); NEUT # 5.7 10*3/uL (2.3-7.9); NEUT % 67.1 % (47.0-73.0); NUCLEATED RED BLOOD CELL 0.0 % (0.0-0.0); NUCLEATED RED BLOOD CELL 0.0 10*3/uL (0.0-0.0); PLATELET COUNT AUTOMATED 293 10*3/uL (130-400); RED CELL DISTRI WIDTH 12.1 % (0-14.5)
[2024-11-28 18:53] LABS: BUN 12 mg/dl (9-23); ETHYL ALCOHOL < 3.0 mg/dl (<3)
[2024-11-28 19:47] LABS: BILIRUBIN Negative (Negative); BLOOD Negative (Negative); CLARITY Clear (Clear); COLOR Yellow (Yellow); KETONE Negative (Negative); LEUKO ESTERASE Trace (Negative); NITRITE Negative (Negative); PH 5.5 (4.5-8.0); SPECIFIC GRAVITY 1.015 (1.001-1.030); UROBILINOGEN 0.2 E.U./dl (0.0-1.0)
[2024-11-28 19:56] LABS: RBC 0-2 rbc/hpf (0-2)
[2024-11-28 19:57] LABS: BACTERIA 1+; MUCOUS 1+
[2024-11-28] MEDS ORDERED: MELOXICAM15 MG PO (20:26)
[2024-11-28] MEDS ORDERED: VIBRAMYCIN100 MG PO (20:26)
== END 2024-11-28 20:29 | disposition home or self-care (01) ==
LOC: ED 17:19
PROVIDERS: Emergency Medicine
DX: N49.1 Inflammatory disorders of spermatic cord, tunica vaginalis and vas deferens (principal); J45.909 Unspecified asthma, uncomplicated; I10 Essential (primary) hypertension; F17.200 Nicotine dependence, unspecified, uncomplicated; Z79.899 Other long term (current) drug therapy; Z88.5 Allergy status to narcotic agent; Z98.890 Other specified postprocedural states

== ENCOUNTER → 2024-12-06 | Outpatient (CLI) | payer OTHER ==
[~2024-12-06] MED LIST changes: +MELOXICAM15 MG PO; +VIBRAMYCIN100 MG PO
[2024-12-06 10:42] LABS: BASO # 0.1 10*3/uL (0.0-0.1); BASO % 0.8 % (0.0-1.0); EOS # 0.4 10*3/uL (0.0-0.4); EOS % 6.1 % (1.0-4.0); MEAN CELL VOLUME 91.3 fl (80.0-94.0); MEAN CORPUSCULAR HGB 29.8 pg (27.0-31.0); MEAN PLATELET VOLUME 9.6 fl (9.6-12.3); MONO # 0.6 10*3/uL (0.1-1.0); MONO % 9.3 % (3.0-9.0); NEUT # 3.5 10*3/uL (2.3-7.9); NEUT % 55.6 % (47.0-73.0); NUCLEATED RED BLOOD CELL 0.0 % (0.0-0.0); NUCLEATED RED BLOOD CELL 0.0 10*3/uL (0.0-0.0); PLATELET COUNT AUTOMATED 300 10*3/uL (130-400); RED CELL DISTRI WIDTH 12.2 % (0-14.5)
[2024-12-06 11:09] LABS: BUN 13 mg/dl (9-23); LDH 173 U/L (120-246); SGPT/ALT 26 U/L (5-49)
[2024-12-06 11:13] LABS: BETA-HCG, TUMOR MARKER < 3.0 mIU/mL (0-3)
== END | disposition home or self-care (01) ==
LOC: US 09:00 → LAB 09:16 → US 09:16
PROVIDERS: ATTEND Urology
DX: N45.1 Epididymitis (principal); N50.819 Testicular pain, unspecified; R53.83 Other fatigue; D40.0 Neoplasm of uncertain behavior of prostate; E29.1 Testicular hypofunction